=== PATIENT | female | born 1975 ===

== ENCOUNTER 2018-01-22 11:17 | Emergency (ER) | payer BC, OTHER ==
[2018-01-22 13:22] VITALS: BP 115/78
--- NOTE | 2018-01-22 14:06 | UC ---
Throat Pain/Nasal Paulie HPI - HPI Summary HPI Summary: nasal congestion x 3 days fever, chills, bodyaches , bilateral ear fullness no cough, no chest pain , sob, - History of Current Complaint Chief Complaint: UCRespiratory Stated Complaint: FEVER CHILLS HEADACHE SORE THROAT Time Seen by Provider: 01/22/18 13:39 Hx Obtained From: Patient Hx Last Menstrual Period: 01/04/18 ?: No Onset/Duration: Gradual Onset, Lasting Days - 3, Still Present Severity: Moderate Pain Intensity: 2 Cough: None Associated Signs & Symptoms: Positive: Sinus Discomfort, Nasal Discharge. Negative: Dysphagia, FB Sensation, Drooling, Wheezing, Fever, Vomiting, Rash - Allergies/Home Medications Allergies/Adverse Reactions: Allergies Allergy/AdvReac Type Severity Reaction Status Date / Time No Known Allergies Allergy Verified 02/03/16 16:05 Home Medications: Home Medications Dm/Pseudoephed/Acetaminophen [Day-Time Multi-Symptom Co] 2 cap PO ONCE PRN 01/22 [History Confirmed 01/22/18] PMH/Surg Hx/FS Hx/Imm Hx Previously Healthy: Yes - Surgical History Surgical History: Yes Surgery Procedure, Year, and Place: 4 c-sections, tubal ligation - Family History Known Family History: Positive: Other - Grandmother positive for kidney stones Negative: Diabetes - Social History Alcohol Use: Occasionally Substance Use Type: None Smoking Status (MU): Never Smoked Tobacco Review of Systems Constitutional: Negative Skin: Negative Eyes: Negative ENT: Ear Ache, Nasal Discharge, Sinus Congestion, Sinus Pain/Tenderness Respiratory: Negative Cardiovascular: Negative Gastrointestinal: Negative Is Patient Immunocompromised?: No All Other Systems Reviewed And Are Negative: Yes Physical Exam Triage Information Reviewed: Yes Appearance: Well-Appearing, No Pain Distress, Well-Nourished Vital Signs: Initial Vital Signs Temp 97.9 F 01/22/18 13:14 Pulse 83 01/22/18 13:14 Resp 14 01/22/18 13:14 BP 115/78 01/22/18 13:14 Pulse Ox 99 01/22/18 13:14 Vital Signs Reviewed: Yes Eye Exam: Normal Eyes: Positive: Conjunctiva Clear ENT: Positive: Normal ENT inspection, Hearing grossly normal, Pharynx normal, Other - cerumen impaction right ear Neck: Positive: Supple, Nontender, No Lymphadenopathy Respiratory: Positive: Chest non-tender, Lungs clear, Normal breath sounds Cardiovascular: Positive: RRR, No Murmur, Pulses Normal Throat Pain/Nasal Course/Dx - Differential Dx/Diagnosis Provider Diagnoses: uri. cerumen impaction right ear Discharge - Sign-Out/Discharge Documenting (check all that apply): Patient Departure All imaging exams completed and their final reports reviewed: No Studies - Discharge Plan Condition: Stable Disposition: HOME Prescriptions: Fluticasone NASAL SPRAY 50MCG* [Flonase NASAL SPRAY 50MCG*] 2 spray BOTH NARES DAILY #1 btl Patient Education Materials: Cerumen Impaction (ED), Upper Respiratory Infection (ED) Referrals: Ronak Sánchez MD [Primary Care Provider] - If Needed - Billing Disposition and Condition Condition: STABLE Disposition: Home
== END 2018-01-22 14:14 | disposition home or self-care (01) ==
LOC: UCCORT 11:17
DX: J06.9 Acute upper respiratory infection, unspecified (principal); H61.21 Impacted cerumen, right ear
CPT/HCPCS: 99213; G0463

== ENCOUNTER 2018-06-01 14:30 | Emergency (ER) | payer BC ==
[2018-06-01 16:36] VITALS: BP 112/70
--- NOTE | 2018-06-01 17:02 | UC ---
Shoulder Pain HPI - HPI Summary HPI Summary: Pt c/o gradual worsening of right shoulder pain with ROM. Pt denies injury or past surgery. Pt has been doing kick boxing 2-3 times per week. - History of Current Complaint Chief Complaint: UCUpperExtremity Stated Complaint: RT SHOULDER PAIN Hx Obtained From: Patient Hx Last Menstrual Period: 06/01/18 ?: No Onset/Duration: Gradual Onset, Lasting Days, Still Present Timing: Constant Severity Initially: Mild Severity Currently: Mild Location Of Pain: Is Discrete @ - right shoulder joint Pain Intensity: 0 Character: Dull, Stiffness Aggravating Factor(s): Movement, Internal Rotation, External Rotation Alleviating Factor(s): Rest Associated Signs And Symptoms: Positive: Negative Related History: Dominant Hand Right - Risk Factors Non-Orthopedic Risk Factor: Negative DVT Risk Factors: Negative Septic Arthritis Risk Factor: Negative - Allergies/Home Medications Allergies/Adverse Reactions: Allergies Allergy/AdvReac Type Severity Reaction Status Date / Time No Known Allergies Allergy Verified 06/01/18 16:36 Home Medications: Home Medications Levothyroxine TAB* [Synthroid TAB*] 0.5 tab PO 0800 06/01/18 [History Confirmed 06/01/18] Levothyroxine TAB* [Synthroid TAB*] 200 mcg PO DAILY 06/01/18 [History Confirmed 06/01/18] PMH/Surg Hx/FS Hx/Imm Hx Previously Healthy: Yes - Surgical History Surgical History: Yes Surgery Procedure, Year, and Place: 4 c-sections, tubal ligation - Family History Known Family History: Positive: Other - Grandmother positive for kidney stones Negative: Diabetes - Social History Occupation: Employed Full-time Lives: With Family Alcohol Use: Occasionally Substance Use Type: None Smoking Status (MU): Never Smoked Tobacco Have You Smoked in the Last Year: No Review of Systems All Other Systems Reviewed And Are Negative: Yes Constitutional: Positive: Negative Skin: Positive: Negative Eyes: Positive: Negative ENT: Positive: Negative Respiratory: Positive: Negative Cardiovascular: Positive: Negative Gastrointestinal: Positive: Negative Genitourinary: Positive: Negative Motor: Positive: Decreased ROM - pain with ROM Neurovascular: Positive: Negative Musculoskeletal: Positive: Arthralgia, Decreased ROM - pain with ROM Neurological: Positive: Negative Psychological: Positive: Negative Is Patient Immunocompromised?: No Physical Exam Triage Information Reviewed: Yes Appearance: Well-Appearing Vital Signs: Initial Vital Signs Temp 97.8 F 06/01/18 16:31 Pulse 90 06/01/18 16:31 Resp 18 06/01/18 16:31 BP 112/70 06/01/18 16:31 Pulse Ox 97 06/01/18 16:31 Vital Signs Reviewed: Yes Eye Exam: Normal ENT Exam: Normal ENT: Positive: Hearing grossly normal Dental Exam: Normal Neck exam: Normal Respiratory Exam: Normal Respiratory: Positive: No respiratory distress Musculoskeletal: Positive: Strength Intact, ROM Intact - c/o pain in joint with ROM Neurological Exam: Normal Psychological Exam: Normal Skin Exam: Normal Shoulder Course/Dx - Course Course Of Treatment: I discussed with the pt the need for further evluation and testing. Pt verbalized understanding and agreed to plan of care. - Differential Dx/Diagnosis Differential Diagnosis/HQI/PQRI: Bursitis, Sprain, Strain, Tendonitis Provider Diagnosis: Right shoulder pain Discharge - Sign-Out/Discharge Documenting (check all that apply): Patient Departure All imaging exams completed and their final reports reviewed: No Studies - Discharge Plan Condition: Stable Disposition: HOME Patient Education Materials: Arthralgia (ED), Safe Use of NSAIDs (ED), Shoulder Pain (ED) Referrals: Reza Cottrell MD [Medical Doctor] - As Soon As Possible Ronak Sánchez MD [Primary Care Provider] - If Needed - Billing Disposition and Condition Condition: STABLE Disposition: Home
== END 2018-06-01 17:22 | disposition home or self-care (01) ==
LOC: UCCORT 14:30
DX: M25.511 Pain in right shoulder (principal)
CPT/HCPCS: 99211; G0463